=== PATIENT | female | born 1995 | race African-American/Black ===

== ENCOUNTER 2024-06-25 08:58 | Emergency (ER) | payer SELFPAY ==
--- NOTE | 2024-06-25 10:25 | ED.GENMED ---
History of Present Illness
General
Chief Complaint: Abdominal Symptoms
Source: patient
Exam Limitations: none
Time Seen by Provider: 06/25/24 09:31
Nursing documentation reviewed up to this point in time: agreed with
History of Present Illness
History of Present Illness:
28-year-old female with history of asthma presents stating she's had suprapubic pain for the past 3 to 4 days. She states she is from [place], up here visiting her boyfriend. She states recently in [place] she was 'tested for everything.' She
states this included gonorrhea, chlamydia and she was treated with an injection and pills for STD. She reports that all of her testing there was negative but she did not have a vaginal exam and they did not test her for chlamydia or HIV. She
states they told her she had an infection in her uterus.
She admits to having recent unprotected sex with someone other than her boyfriend.
She is here now because she has suprapubic pain which is worse with intercourse. She denies any vaginal pain or discharge. She states the suprapubic pain is pressure, aching, worse with moving.
She denies fever or chills. Denies SOB/CP. Denies N/V/D/C.
Past History
Past History
ED Past Medical History: Asthma
ED Past Surgical History: None
Social History
Tobacco: Non-smoker
Alcohol: Occasional
Drug: Marijuana (Occasional)
Personal: Single
Living: with roommate
Review of Systems
Review of Systems
Allergies reviewed?: Yes
All Other Systems: ROS reviewed and negative except as documented in HPI and ROS
Constitutional: Denies fever or chills
EENT: Denies sore throat or mouth pain
Respiratory: Denies trouble breathing
Cardiac: Denies chest pain
ABD/GI: Reports abdominal pain; Denies nausea, vomiting, diarrhea, constipated, bloody stools, black stools or anorexia
: Denies dysuria, frequency, difficulty voiding, urgency, bleeding or discharge
Musculoskeletal: Reports no symptoms
Skin: Reports no symptoms
Neurological: Reports no symptoms
Phy Exam
Physical Exam
Physical Exam:
GENERAL: No acute distress. A&Ox3.
CONSTITUTIONAL: Afebrile.
EYES: PERRL, conjunctivae normal
ENMT: moist mucus membranes, Pharynx nl, oral mucosa normal
RESPIRATORY: Regular respirations, nonlabored, lungs clear.
CARDIOVASCULAR: Regular rate and rhythm, no murmurs, no rubs.
GI: Soft, suprapubic tenderness, normal BS
MUSCULOSKELETAL: Moves with ease. Well perfused.
SKIN: Warm, dry, normal
PSYCH: Normal mood and affect. Well kept, interactive and appropriate
NEUROLOGIC: Awake, alert and oriented. No focal neurological deficits
Genitourinary Exam Female
Exam Female: vaginal discharge (There is a small to moderate amount of white discharge with whitish lesions on the cervix)
Vaginal Exam: normal
Vaginal Bleeding: none
Uterus: normal size
Adnexa: Bilateral: Normal
Course
Orders/Labs/Results
Orders:
Orders
06/25/24 10:25
Test Result ONCE
US Pelvis W Transvag Combined Urgent
Comment:
Reason For Exam: suprapubic pain
06/25/24 10:26
Urinalysis Urgent
Date Specimen was Collected: 06/25/24
Time Specimen was Collected: 10:24
06/25/24 10:32
Complete Blood Count/With Diff Urgent
Comprehensive Metabolic Panel Urgent
HCG, Serum Qualitative Screen Urgent
HIV Combo Urgent
06/25/24 10:45
Chlamydia/GC by PCR Urgent
BOBBI Source: Urine
Specimen Description:
Source:: URINE
Date Specimen was Collected: 06/25/24
Time Specimen was Collected: 10:41
Comment: Please also add urine trichamonas
Trichomonas - Wet Prep Urgent
BOBBI Source: Vagina
Specimen Description:
Date Specimen was Collected: 06/25/24
Time Specimen was Collected: 10:41
06/25/24 11:33
Makayla/Yeast Culture Urgent
BOBBI Source: Vagina
Specimen Description:
Date Specimen was Collected: 06/25/24
Time Specimen was Collected: 11:26
06/25/24 13:52
Fluconazole [Diflucan] 200 mg PO NOW STA
Abnormal Lab Results
06/25/24
10:32
RBC 3.97 L 10^6/uL
(4.20-5.40)
MCV 101.5 H fL
(81.0-99.0)
MCH 34.8 H pg
(27.0-31.0)
Plt Count 110 L 10^3/uL
(130-400)
MPV 12.5 H fL
(7.4-10.4)
Sodium 148 H mmol/L
(135-145)
AST 41 H U/L
(14-36)
Total Protein 8.7 H g/dl
(6.3-8.2)
Albumin 5.7 H g/dl
(3.5-5.0)
06/25/24 10:32
06/25/24 10:32
Vital Signs
Initial and Last Documented VS:
Initial Vital Signs
Pulse Resp BP Pulse Ox
86 20 131/75 100
06/25/24 13:48 06/25/24 13:48 06/25/24 13:48 06/25/24 13:48
Last Documented Vital Signs
Pulse Resp BP Pulse Ox
86 20 131/75 100
06/25/24 13:48 06/25/24 13:48 06/25/24 13:48 06/25/24 13:48
MDM/Problems Addressed
Differential Diagnosis Includes:
Candidiasis, STD
MDM/Problems Addressed:
28-year-old female with history of asthma presents stating she's had suprapubic pain for the past 3 to 4 days. She states she is from [place], up here visiting her boyfriend. She states recently in [place] she was 'tested for everything.' She
states this included gonorrhea, chlamydia and she was treated with an injection and pills for STD. She reports that all of her testing there was negative but she did not have a vaginal exam and they did not test her for chlamydia or HIV. She
states they told her she had an infection in her uterus.
She admits to having recent unprotected sex with someone other than her boyfriend.
She is here now because she has suprapubic pain which is worse with intercourse. She denies any vaginal pain or discharge. She states the suprapubic pain is pressure, aching, worse with moving.
She denies fever or chills. Denies SOB/CP. Denies N/V/D/C.
11:30 AM:
CBC with no clinically significant abnormality
CMP with no clinically significant abnormality
hCG negative
UA negative
Trichomoniasis wet prep negative for trichomonas
12:45 PM: Pelvic ultrasound radiology report read:IMPRESSION:
No focal uterine abnormality.
Demonstrable left ovarian blood flow. No findings to suggest left adnexal mass.
Right ovary not visualized.
Small volume free fluid in the right adnexa, left adnexa and cul-de-sac.
1:45 PM:
Patient has been out of bed ambulating multiple times into the hallway, joking, hyperactive at times, on the phone with her boyfriend putting him on speaker phone each time I am going to talk to her, asking for complete STD workup although she
stated she had a negative STD workup recently in [place].
GC/ chlamydia negative
Yeast culture will not be back until tomorrow. I will treat presumptively for yeast infection with 1 dose of Diflucan patient can call tomorrow for the yeast result. Otherwise her workup here is negative HIV test is pending and she will have to
call for the results
*Critical Care Note
Total Time (30-74mins, 75-104mins- exclusive of procedures): Not Applicable
ED Attending Note
-
Portions of this chart may have been created with voice recognition software.� Occasional wrong word or��sound alike� substitutions may have occurred due to the inherent limitations of voice recognition software.
Discharge Plan
Departure
Patient Disposition: Home (Routine Discharge)
Date of Disposition: 06/25/24
Time of Disposition: 13:46
Patient with high blood pressure during this ER visit?: No
Condition: Good
Discharge Problem:
Pelvic pain
Instructions: Abdominal Pain
Referrals:
NONE,* [Family Provider] -
Stand Alone Forms: Return to Work
Activity Restrictions/Additional Instructions:
As we discussed, your yeast test and HIV tests are pending and will not be done until tomorrow. You were treated here today for a presumed yeast infection with Diflucan 200 mg.
You should avoid sexual intercourse until your abdominal pain is gone and you have no symptoms such as vaginal discharge, vaginal irritation or itching.
You may call me Friday between 11 a.m. and 3 p.m. for the results of the Yeast and HIV tests or and ask for Day.
Interventions
Interventions:
*Risk Screen - Suicide Last Done: 06/25/24 09:08
*General Assessment Last Done: 06/25/24 10:26
*Neglect/Abuse Screening Last Done: 06/25/24 09:08
ED- Fall Risk Assessment Last Done: 06/25/24 14:04
*ED COVID-19 Vaccine History Last Done: 06/25/24 10:26
*Nursing Disposition Last Done: 06/25/24 14:04
UT-Jpeepz-Htojpadiag Assessment Last Done: 06/25/24 14:04
Discharge Date and Time
Discharge Date/Time: 06/25/24 14:15
Print Language: CAPE VERDEAN
[2024-06-25 10:36] VITALS: BMI 19.9
[2024-06-25 10:48] LABS: Urine Albumin Negative (Neg - Trace); Urine Bilirubin Negative (Negative); Urine Character Clear (Clear); Urine Color Yellow; Urine Glucose Negative (Negative); Urine Ketone Negative (Negative); Urine Leukocyte Negative (Negative); Urine Nitrite Negative (Negative); Urine Occult Blood Negative (Negative); Urine Specific Gravity 1.015 (<1.030); Urine Urobilinogen Negative (Neg - 1+); Urine pH 6.5 (5.0-9.0)
[2024-06-25 10:57] LABS: Hematocrit 40.3 % (37.0-47.0); Hemoglobin 13.8 g/dL (12.0-16.0); Mean Corp Hgb Conc. 34.2 g/dL (33.0-37.0); Mean Corpuscular Hgb 34.8 pg (27.0-31.0); Mean Corpuscular Volume 101.5 fL (81.0-99.0); Mean Platelet Volume 12.5 fL (7.4-10.4); Platelet Count 110 10^3/uL (130-400); Red Blood Cell Count 3.97 10^6/uL (4.20-5.40); Red Cell Dist. Width 12.5 % (11.5-14.5); White Blood Cell Count 6.1 10^3/uL (4.8-10.8)
[2024-06-25 11:08] LABS: ALT (SGPT) 34 U/L (0-35); AST (SGOT) 41 U/L (14-36); Albumin 5.7 g/dl (3.5-5.0); Alkaline Phosphatase 46 U/L (38-126); Blood Urea Nitrogen 11 mg/dl (7-17); Calcium 9.7 mg/dl (8.4-10.2); Carbon Dioxide 26 mmol/L (22-30); Chloride 107 mmol/L (98-107); Estimated Creatinine Clearance 105 ml/min; Glucose 94 mg/dl (70-99); Potassium 3.9 mmol/L (3.5-5.1); Sodium 148 mmol/L (135-145); Total Bilirubin 0.3 mg/dl (0.2-1.3); Total Protein 8.7 g/dl (6.3-8.2); eGFR > 60.00
[2024-06-25 11:12] LABS: HCG, Serum Qualitative Screen Negative
[2024-06-25 11:54] LABS: % Basophils 0.7 % (0-2); % Eosinophils 0.7 % (0-6); % Lymphocytes 28.9 % (20.5-51.1); % Monocytes 9.2 % (1.7-9.3); % Neutrophils 60.5 % (42.2-75.2); Absolute Lymphocytes 1.8 10^3/uL (1.2-3.4); Absolute Monocytes 0.6 10^3/uL (0.1-0.6); Absolute Neutrophils 3.7 10^3/uL (1.4-6.5); Nucleated Red Blood Cells % 0 %
[2024-06-25 13:25] LABS: HIV Combo Negative (Negative)
[2024-06-25 13:48] VITALS: BP 131/75
[2024-06-25] MEDS: DIFLUCAN 200 MG PO (13:57)
== END 2024-06-25 14:15 | disposition home or self-care (01) ==
LOC: EMR 08:58
PROVIDERS: Registered Nurse; EMERGENCY PHYSICIAN Emergency Medicine
DX: R10.2 Pelvic and perineal pain (principal); J45.909 Unspecified asthma, uncomplicated
CPT/HCPCS: 99284; 76830; 76856; 80053; 81003; 84703; 85025; 87102; 87210; 87389; 87491; 87591

== ENCOUNTER 2025-01-19 03:07 | Inpatient (IN) | payer BC, SELFPAY ==
[2025-01-18 18:48] VITALS: BP 140/107
[2025-01-18 19:08] LABS: Hematocrit 38.6 % (37.0-47.0); Hemoglobin 13.9 g/dL (12.0-16.0); Mean Corp Hgb Conc. 36.0 g/dL (33.0-37.0); Mean Corpuscular Volume 92.8 fL (81.0-99.0); Red Cell Dist. Width 12.3 % (11.5-14.5)
[2025-01-18 19:10] LABS: HCG, Serum Qualitative Screen Negative
[2025-01-18 19:19] LABS: ALT (SGPT) 24 U/L (0-35); AST (SGOT) 31 U/L (14-36); Albumin 5.5 g/dl (3.5-5.0); Alkaline Phosphatase 55 U/L (38-126); Blood Urea Nitrogen 10 mg/dl (7-17); Calcium 10.3 mg/dl (8.4-10.2); Carbon Dioxide 23 mmol/L (22-30); Chloride 110 mmol/L (98-107); Glucose 110 mg/dl (70-99); Lipase 399 U/L (23-300); Potassium 4.0 mmol/L (3.5-5.1); Sodium 141 mmol/L (135-145); Total Protein 9.0 g/dl (6.3-8.2); eGFR > 60.00
[2025-01-18 19:24] LABS: Platelet Count 154 10^3/uL (130-400)
[2025-01-18 19:25] LABS: Nucleated Red Blood Cells % 0 %
[2025-01-18] MEDS: TYLENOL 650 MG PO (21:20)
--- NOTE | 2025-01-18 22:47 | ED.GENMED ---
History of Present Illness
General
Chief Complaint: Abdominal Pain
Source: patient
Exam Limitations: none
Time Seen by Provider: 01/18/25 22:11
Nursing documentation reviewed up to this point in time: agreed with
History of Present Illness
History of Present Illness:
Note:
CHIEF COMPLAINT(S)
Abdominal pain.
HISTORY OF PRESENT ILLNESS
The patient is a 29-year-old female who presents with abdominal pain that began on Friday. She describes the pain as feeling like her organs are twisting or pulling. Since the onset, the pain has been constant, and she reports being unable to
sleep or perform daily activities. She initially experienced diarrhea, which has since resolved to the sensation of needing to defecate, but only passing a small amount. Urination is normal. Her last menstrual period was on the , and there is no
abnormal vaginal bleeding or discharge reported. She denies the possibility of . The patient reports experiencing fluctuations in body temperature, but no definitive fevers. She feels nauseated but has not vomited. She last took ibuprofen
for pain at 9:00 AM, which was ineffective. The patient denies any recent use of narcotics or opioids.
SOCIAL HISTORY
The patient mentions taking a sleep aid regularly.
MEDICATIONS
The patient reports taking a sleep aid on a daily basis and recently took ibuprofen for her current symptoms.
REVIEW OF SYSTEMS
- Gastrointestinal: Initially had diarrhea, now has a sensation of incomplete evacuation.
- Genitourinary: Normal urination, last menstrual period on the , no unusual vaginal symptoms.
- General: Reports fluctuations between feeling hot and cold.
PLAN
The plan includes administering pain medication and performing a computed tomography (CT) scan of the abdomen to further investigate the cause of her symptoms.
DIFFERENTIAL DIAGNOSIS
The Differential Diagnosis includes, in no particular order and is not limited to:
1. Pancreatitis
2. Constipation or bowel obstruction
3. Peptic ulcer disease
4. Urinary tract infection
5. Crohns disease
6. Irritable bowel syndrome
7. Ectopic
8. Appendicitis
9. Ovarian cyst or torsion
10. Pelvic inflammatory disease
CARE-UPDATE
01/19/25 - 00:39
The patient was discharged from alcohol rehab on December 01, remaining sober for approximately six weeks. The current condition, mild to moderate acute on chronic pancreatitis, is suspected to be linked to recent heavy alcohol use. Treatment plan
includes administering fluids and additional pain medication as needed. The patient consented to stay for further care.
Disposition:
SUMMARY OF ENCOUNTER
The patient is a 29-year-old female who presented to the emergency department with abdominal pain. She has a history of alcoholism and recently completed alcohol rehab approximately six weeks ago. Over the past weekend, she resumed heavy drinking
and subsequently developed abdominal pain localized to the epigastric region. Her symptoms and clinical presentation are consistent with acute pancreatitis.
DISPOSITION
Admit.
ASSESSMENT
The patient presents with symptoms indicative of acute pancreatitis, likely precipitated by recent heavy alcohol consumption following a period of abstinence.
PLAN
The plan includes admitting the patient for further evaluation and management of acute pancreatitis. Treatment will include supportive care, pain management, and monitoring for potential complications related to pancreatitis.
MEDICAL DECISION MAKING
-Complexity of Data Reviewed: Chronic conditions affecting care include a history of alcoholism and recent heavy alcohol use.
-Data:
Category 1
Tests considered: CT scan of the abdomen to further evaluate abdominal pain.
-Risk:
Consideration of Admission/Observation: Escalation of care including admission was considered and chosen due to the complexity and risk associated with acute pancreatitis and the patients alcohol use history.
DIAGNOSIS
Acute pancreatitis (ICD-10: K85.90).
Past History
Past History
ED Past Medical History: Asthma
ED Past Surgical History: None
Social History
Tobacco: Non-smoker
Alcohol: Occasional
Drug: Marijuana (Occasional)
Personal: Single
Living: with roommate
Review of Systems
Review of Systems
Allergies reviewed?: Yes
All Other Systems: ROS reviewed and negative except as documented in HPI and ROS
Constitutional: Reports no symptoms
EENT: Reports no symptoms
Respiratory: Reports no symptoms
Cardiac: Reports no symptoms
ABD/GI: Reports abdominal pain and nausea
: Reports no symptoms
Musculoskeletal: Reports no symptoms
Skin: Reports no symptoms
Neurological: Reports no symptoms
Endocrine: Reports no symptoms
Hematologic/Lymphatic: Reports no symptoms
Psychiatric: Reports no symptoms
Phy Exam
General Physical Exam
General Presentation: moderate distress
General age: appears stated age
General Skin: warm, dry and other (tattoos )
General Habitus: normal
General Mental: alert
General Hydration: appears well hydrated
ENT Exam
ENT Exam: EOMI, pharynx normal, neck supple and normocephalic
Eye Exam
Eye Exam: PERRL, cornea clear and conjunctiva normal
Cardiovascular Exam
Cardiovascular Exam: regular rate/rhythm, no edema, no murmur and normal peripheral pulses
Pulmonary Exam
Pulmonary Exam: lungs clear, no respiratory distress, no rales, no crackles, no rhonchi, no stridor, no wheezing and no cough
Gastrointestinal Exam
Gastrointestinal Exam: normal bowel sounds and guarding
Palpation: left upper quadrant: Moderate tenderness, right upper quadrant: Moderate tenderness and generalized: Moderate tenderness
Auscultation of Abdomen: normal
Neurological Exam
Neurological Exam: alert, oriented x3, no motor deficits and speech normal
Musculoskeletal Exam
Musculoskeletal Exam: full ROM and no edema
Skin Exam
Skin Exam: normal color, warm/dry, no rash and no petechia
Psychiatric Exam
Psychiatric Exam: normal mood/affect
Course
Orders/Labs/Results
Orders:
Orders
01/18/25 18:50
IV Insert/Care/Rem.- Treatment PRN
Test Result ONCE
01/18/25 18:53
Complete Blood Count/With Diff Urgent
Comprehensive Metabolic Panel Urgent
HCG, Serum Qualitative Screen Urgent
Comment: Notify provider if positive test present
Lactate Level [Lactic Acid] Urgent
Lipase Urgent
01/18/25 21:18
Acetaminophen [Tylenol] 650 mg .ROUTE .STK-MED ONE
01/18/25 21:19
Acetaminophen [Tylenol] 650 mg PO NOW STA
01/18/25 22:45
Morphine Sulfate 4 mg IV NOW STA
Ondansetron Injectable [Zofran] 4 mg IV NOW STA
01/18/25 22:46
CT Abd/pelvis W Iv Cont Urgent
Comment:
Reason For Exam: diffuse abd pain
0.9% Sodium Chloride 1000 ml [Nss] 1,000 ml IV BOLUS
01/19/25 00:45
Morphine Sulfate 4 mg IV NOW STA
Abnormal Lab Results
01/18/25
18:53
RBC 4.16 L 10^6/uL
(4.20-5.40)
MCH 33.4 H pg
(27.0-31.0)
MPV 12.2 H fL
(7.4-10.4)
Monocytes % 9.5 H %
(1.7-9.3)
Chloride 110 H mmol/L
(98-107)
Glucose 110 H mg/dl
(70-99)
Calcium 10.3 H mg/dl
(8.4-10.2)
Total Protein 9.0 H g/dl
(6.3-8.2)
Albumin 5.5 H g/dl
(3.5-5.0)
Lipase 399 H U/L
(23-300)
01/18/25 18:53
01/18/25 18:53
Vital Signs
Initial and Last Documented VS:
Initial Vital Signs
Temp Pulse Resp BP Pulse Ox
98.6 F 112 18 140/107 100
01/18/25 18:48 01/18/25 18:48 01/18/25 18:48 01/18/25 18:48 01/18/25 18:48
Last Documented Vital Signs
Temp Pulse Resp BP Pulse Ox
98.6 F 84 18 115/75 100
01/18/25 18:48 01/18/25 22:02 01/18/25 22:02 01/19/25 00:02 01/19/25 00:02
*Radiology
Radiology exam reviewed: radiology read reviewed
*Pulse Oximetry
SaO2: 99
Oxygen Mode of Delivery: Room air
Patient hypoxic: no
*Critical Care Note
Total Time (30-74mins, 75-104mins- exclusive of procedures): Not Applicable
Update Note
Update Note:
NAME: JOSE CERON
DATE OF EXAM: 01/18/2025
Patient No: [id number]
Physician: REEMA^YVONNE^Simon
Date of : 1995
Past Medical History (entered by Technologist):
Reason For Exam (entered by Technologist): diffuse abd pain
Other Notes (entered by Technologist): no prior ct
Additional Information (per [facility] Radiologist): Per Dr. Dean, lipase elevated to 400s
CT A/P
IMPRESSION:
Soft tissue density and edema seen within the pancreaticoduodenal groove, with an associated small probable reactive lymph node. 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 MRI/MRCP
is recommended for further assessment.
Layering biliary sludge in the gallbladder.
Noninflamed appendix. No evidence of bowel obstruction.
No evidence of obstructing ureteral calculus.
Additional findings: Focal fat adjacent to the falciform ligament.
Case discussed with Dr. Dean at 12:26AM ET.
Philipp Obrien M.D.
This report has been electronically signed and verified by the Radiologist whose name is printed above.
ED Attending Note
-
Portions of this chart may have been created with voice recognition software.� Occasional wrong word or��sound alike� substitutions may have occurred due to the inherent limitations of voice recognition software.
Discharge Plan
Departure
Patient Disposition: Admit
Date of Disposition: 01/19/25
Time of Disposition: 00:42
Admit to: Med/Surg
Presentation/result/management discussed w/ accepting MD/DO: Hospitalist
Discharge Problem:
Pancreatitis
Referrals:
NONE,* [Family Provider, Internal Medicine]
Interventions
Interventions:
*Risk Screen - Suicide Last Done: 01/18/25 18:48
*General Assessment Last Done: 01/18/25 21:54
*Neglect/Abuse Screening Last Done: 01/18/25 18:48
*ED- Fall Risk Assessment Last Done: 01/18/25 21:54
*ED COVID-19 Vaccine History Last Done: 01/18/25 21:54
YG-Mkdnit-Owbghxuwyo Assessment Last Done: 01/18/25 21:54
Discharge Date and Time
Print Language: HUNGARIAN
[2025-01-18 23:00] VITALS: BP 116/81
[2025-01-18] MEDS: ZOFRAN 4 MG IV (23:03)
[2025-01-18] MEDS: NSS 1000 IV (23:03)
[2025-01-18] MEDS: MORPHINE SULFATE 4 MG IV (23:05)
[2025-01-19] VITALS (9 sets, daily range): BP systolic 100–130; BP diastolic 69–84; BMI 23.5
[2025-01-19] MEDS: MORPHINE SULFATE 4 MG IV (01:05)
--- NOTE | 2025-01-19 01:16 | HPS.HSE ---
Family Physician
-
Family Physician: * NONE
Chief Complaint
-
abdominal pain
History of Present Illness
29yo F with PMHx of alcoholic dependency, recently from rehab had relapsed with alcohol intake and developed epigastric abd pain radiating to the back over weekend, she was trying to calm pain down with alcohol. CT showed acute on chronic
pancreatitis
Medical History
Past Medical History
Past Medical History: Reports Other
Additional Past Medical History:
see HPI
Past Surgical History: Reports None
Social History
Tobacco: Smoker
Alcohol: Daily
Drug: None
Family History
Family History: Not pertinent
Allergies / Home Medications
Allergies reflects when Allergies were last updated in [facility].
Home Medications with original date entered in [facility]
Allergy/Medication List:
Allergies
Allergy/AdvReac Type Severity Reaction Status Date / Time
guaifenesin (From Robitussin) Allergy Hives Verified 01/18/25 18:48
Not on any meds
Review of Systems
-
A 12 point ROS was completed and negative except as noted: Yes
Abdomen/GI: Reports See HPI
Physical Exam
Vital Signs
Vital Signs
Temp Pulse Resp BP Pulse Ox
98.6 F 84 18 123/84 98
01/18/25 18:48 01/18/25 22:02 01/18/25 22:02 01/19/25 01:00 01/19/25 01:00
Physical Exam
General: Well Developed, Well Nourished and No Apparent Distress
HEENT: NormoCephalic, Anicteric and Moist mucous membranes
Respiratory: Clear; No Wheezes or Crackles
Cardiac: S1/S2 and Regular Rhythm; No Murmur
GI: Soft, Non Distended and Tender
Genito-urinary: No costovertebral tender
Musculoskeletal: No Clubbing, No Cyanosis and No Edema
Skin: Warm
Neuro: Awake, Alert, Oriented and AO x 3
Psych: Calm
Laboratory Results
-
01/18/25 18:53
01/18/25 18:53
Laboratory Results
Lactic Acid 1.3 mmol/L (0.7-2.0) 01/18/25 18:53
Total Bilirubin 0.4 mg/dl (0.2-1.3) 01/18/25 18:53
AST 31 U/L (14-36) 01/18/25 18:53
ALT 24 U/L (0-35) 01/18/25:53
Alkaline Phosphatase 55 U/L (38-126) 01/18/25 18:53
Lipase 399 U/L (23-300) H 01/18/25 18:53
Data Reviewed
-
Diagnostic Radiology: Report Reviewed by me
Lab Data: Labs Reviewed by me
Impression/Plan
-
A/P:
#Acute alcoholic pancreatitis
CT with just some sludge in gall bladder
mild elevation of calcium 2/2 dehydration
Bolus 2L in ED, then IVF LR 200ml/h
NPO
Pain mgmt
MRCP as recommeded by radiologist
GI consult
#Alcohol abuse
MSAS with Ativan and thiamine/folate
watch for withdrawal as patient consumed up to 1 pint of hard liquor daily
DVT ppx lovenox
Full code
I have spent at least 78min admitting the patient
[2025-01-19] MEDS: NSS 1000 IV (01:23)
[2025-01-19 01:30] LABS: HDL Cholesterol 67 mg/dl; LDL Cholesterol, Calculated 81 mg/dl; Very Low Density Lipoprotein 22 mg/dl (0-30)
[2025-01-19] MEDS: MORPHINE SULFATE 2 MG IV ×5 (03:57→20:37)
[2025-01-19] MEDS: TORADOL 10 MG IV ×3 (03:57→19:44)
[2025-01-19] MEDS: ATIVAN 1 MG PO ×2 (03:57→19:44)
[2025-01-19] MEDS: LR 1000 IV ×4 (03:58→19:45)
--- NOTE | 2025-01-19 06:59 | CON.GI ---
Addendum entered and electronically signed by Kizzy Kong DO 01/19/25 12:00:
The patient was seen and examined by me independently in collaboration with the nurse practitioner.
Past medical history/social history/medications/allergies/family history reviewed.
Lab data and imaging data reviewed.
29 y.o. female with etoh abuse and daily marijuana use admitted with epigastric pain found to have acute pancreatitis, WBC 10K and Lipase 399.
CT A/P: 6.5 mm hypodensity along the lateral right hepatic lobe, too small to accurately characterize although may represent a small cyst or hemangioma. Bile ducts normal. 'possible layering biliary sludge.' Mild stranding along the pancreatic head.
The nighthawk read mentioned changes of acute on chronic pancreatitis, however, not seen in final read from our radiologist. She denies prior episodes of chronic pancreatitis. No EPI symptoms.
She was in rehab in November, but admits to ongoing etoh use, 1 pint of rum daily.
Currently, pain is somewhat improved, 01/20.
A/P: Acute pancreatitis, 1st episode
-questionable chronic panc on nighthawrk read, only reading as acute pancreatitis on official/final read
-suspect etoh pancreatits but given GB sludge on US, recommend MRI/MRCP to further evaluate, LFTs WNL
-IVF @ 200 cc/hr
-check CRP
-okay for ice chips/sips of water, can advance to clears once pain improves
-trig WNL
Addendum entered and electronically signed by AREN Mane 01/19/25 08:25:
to note no prior hx pancreatits in past-- this is first episode
Original Note:
Consultation
-
Date/Time Consultation Requested: 01/19/25 0050
Date/Time Consultation Performed: 01/19/25 0700
Requesting Provider: Pepe Forde MD
Performing Provider: AREN Estevez, Andria Kong DO
Reason for Consultation: abdominal pain, increased lipase
Medical History
Chief Complaint / HPI
Chief Complaint: abdominal pain
History of Present Illness:
Pt is a 29yo presents with history ETOH dependency, daily marijuana use, asthma, headaches with recent rehab with onset of epigastric pain with ETOH use and noted on admission with WBC 10,300 and lipase of 399. CT completed in ER with alyshak
reading with concern for pancreatitis acute on chronic recommended MRI, laying of sludge, and final read with pancreatitis, laying sludge liver cyst vs hemangioma. ETOH level of 72 on admission.
In review with patient she admits to hx ETOH use. She went to rehab in November but admits to continued ETOH use 1 pint of rum daily after rehab completed. She admits to mild pain that became severe and prompting admission. Pain was 10+/10 then
7/10 on evaluation. She admits to regular NSAID use for pain and headaches. She has also had diarrhea and constipation issues. She denies odynophagia, dysphagia, GERD or rectal bleeding. No hx EGD or colonoscopy in past. Only new med sleeping
med. She is on other medication but no meds listed in chart.
Past Medical History
Past Medical History: Asthma and Other (ETOH, Marijuana use, headaches )
Past Surgical History: Other (nasal surgery )
Social History
Tobacco: Smoker
Alcohol: Daily
Drug: Marijuana and Other (no other IVDA)
Personal: Other (boyfriend )
Living: Other (lives in [place] currently visiting boyfriend )
Employment: Employed
Family History
Family History: Other (both parents with hx alcohol use )
Allergies / Home Medications
Allergy/AdvReac Type Severity Reaction Status Date / Time
guaifenesin (From Robitussin) Allergy Hives Verified 01/18/25 18:48
Review of Systems
-
History Source: Patient
Constitutional: Reports Weight Gain
EENT: Reports No Symptoms
Respiratory: Reports No Symptoms
Cardiac: Reports No Symptoms
Abdomen/GI: Reports Abdominal Pain
: Reports No Symptoms
Musculoskeletal: Reports No Symptoms
Skin: Reports No Symptoms
Neurological: Reports Headache
Endocrine: Reports No Symptoms
Hematologic/Lymphatic: Reports No Symptoms
Vital Signs
Temp Pulse Resp BP Pulse Ox
97.3 F 82 16 130/84 95
01/19/25 03:50 01/19/25 03:50 01/19/25 03:50 01/19/25 03:50 01/19/25 03:50
Physical Exam
Exam
General: Well Developed, Well Nourished and No Apparent Distress
HEENT: Normocephalic and Anicteric
Respiratory: Clear
Cardiac: Regular Rhythm
GI: Soft, Tender (diffuse ) and Distended
Musculoskeletal: No Clubbing and No Cyanosis
Skin: Warm and Dry
Neuro: Awake, Alert and AO x 3
Psych: Calm
Results
WBC 6.7 10^3/uL (4.8-10.8) 01/18/25 18:53
Hgb 13.9 g/dL (12.0-16.0) 01/18/25 18:53
Hct 38.6 % (37.0-47.0) 01/18/25 18:53
MCV 92.8 fL (81.0-99.0) 01/18/25 18:53
Plt Count 154 10^3/uL (130-400) 01/18/25 18:53
Absolute Neuts (auto) 3.6 10^3/uL (1.4-6.5) 01/18/25 18:53
Sodium 141 mmol/L (135-145) 01/18/25 18:53
Potassium 4.0 mmol/L (3.5-5.1) 01/18/25 18:53
Chloride 110 mmol/L (98-107) H 01/18/25 18:53
Carbon Dioxide 23 mmol/L (22-30) 01/18/25 18:53
BUN 10 mg/dl (7-17) 01/18/25 18:53
Creatinine 0.6 mg/dL (0.6-1.0) 01/18/25 18:53
Calcium 10.3 mg/dl (8.4-10.2) H 01/18/25 18:53
Total Bilirubin 0.4 mg/dl (0.2-1.3) 01/18/25 18:53
AST 31 U/L (14-36) 01/18/25 18:53
ALT 24 U/L (0-35) 01/18/25 18:53
Alkaline Phosphatase 55 U/L (38-126) 01/18/25 18:53
Lipase 399 U/L (23-300) H 01/18/25 18:53
Diagnostic Image Results:
01/19 CT A/p nighthawk- soft tissue density and edema within pancreatic duodenal groove with reactive lymph node. acute superimposed on chronic pancreatitis. MRI recommended. layering of sludge in gallbladder. non inflammed appendix no obstruction
no obs renal calculi, focal fat adjacent to falciform ligament-
final CT reading
There is mild stranding along the pancreatic head suggestive of pancreatitis.
There is possible layering biliary sludge.
There is a 6.5 mm mild hypodensity along the lateral right hepatic lobe, too small to accurately characterize although may represent a small cyst or hemangioma.
Prior GI Procedures:
EGD: none
Colonoscopy: none
Assessment / Plan
-
Pt is a 29yo presents with history ETOH dependency, daily marijuana use, asthma, headaches with recent rehab with onset of epigastric pain with ETOH use and noted on admission with WBC 10,300 and lipase of 399. CT completed in ER with nighthawk
reading with concern for pancreatitis acute on chronic recommended MRI, laying of sludge, and final read with pancreatitis, laying sludge liver cyst vs hemangioma. ETOH level of 72 on admission.
-pancreatitis possible acute on chronic per night hawk read
-abdominal distention - possible ileus
-ETOH abuse
-sludge on imaging
-possible hemangioma
-elevated calcium on admission
-daily Marijuana use
-asthma
-NSAID use
PLAN:
Etiology of symptoms with concern for ETOH pancreatitis possible acute on chronic, some sludge on CT, TG normal
cont IVF 200ml/hr
pain control
add CRP for baseline
Ice chips/sips fluids monitor for worsening distention with possible ileus
stressed ETOH abstinence
for MRCP will add contrast to study
will follow
-
-
Thank you for consultation and allowing me to participate in the patient's care. Please call the coordinator of online programs GI physician during the after hours with any questions or concerns.
[2025-01-19] MEDS: FOLVITE 1 MG PO (07:32)
[2025-01-19] MEDS: FLUSH (NSS) 1 FLUSH IV ×5 (07:33→16:29)
[2025-01-19] MEDS: THIAMINE INJECTION 200 MG IV ×2 (07:33→19:44)
[2025-01-19 08:45] LABS: Hematocrit 32.9 % (37.0-47.0); Hemoglobin 11.2 g/dL (12.0-16.0); Mean Corp Hgb Conc. 34.0 g/dL (33.0-37.0); Mean Corpuscular Volume 96.5 fL (81.0-99.0); Nucleated Red Blood Cells % 0 %; Red Cell Dist. Width 12.2 % (11.5-14.5)
[2025-01-19 09:08] LABS: Blood Urea Nitrogen 8 mg/dl (7-17); Calcium 8.4 mg/dl (8.4-10.2); Carbon Dioxide 23 mmol/L (22-30); Chloride 110 mmol/L (98-107); Estimated Creatinine Clearance 123 ml/min; Glucose 87 mg/dl (70-99); Potassium 3.7 mmol/L (3.5-5.1); Sodium 136 mmol/L (135-145); eGFR > 60.00
[2025-01-19 09:23] LABS: Platelet Count 128 10^3/uL (130-400)
[2025-01-19 09:41] LABS: ALT (SGPT) 18 U/L (0-35); AST (SGOT) 26 U/L (14-36); Albumin 3.8 g/dl (3.5-5.0); Alkaline Phosphatase 34 U/L (38-126); Total Protein 6.0 g/dl (6.3-8.2)
--- NOTE | 2025-01-19 12:22 | CM ---
Met with patient to obtain information for assessment. Patient stated that she lives in [place] with a roommate. She reported that they do get along well. She has no steps to enter or steps inside building. She described herself as independent with
her ADLs, personal care, dressing and bathing. She can cook, clean, do communication and outreach manager and laundry. She is able to drive however does not currently have her license or a car and therefore she is transported by friends. She works for patient access
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 Patient has no DME. She has not had VN services in the past. She has no DME.
Patient has been to rehab, Inpatient, IOP and has gone consistently to AA meetings in her area. She stated that she relapsed over the weekend and started to develop severe abdominal pain.
Patient does not have a lot of family support. She has 5 siblings and a mother but is only close with one sister.
[facility] has a [facility] [place] [facility].
Patient does not have a PCP listed.
Patient stated that she would like to return to work when she can. She would like to start IOP at [facility] [phone]. She has been there before.
Placed a call to [facility] and spoke with Ally who stated that she will come to see patient later today and assist with connecting her to rehab services. CM contact information was provided.
Plan: Case management with continue to follow and assist with discharge planning. Rehab when stable.
[2025-01-19 13:57] LABS: C-Reactive Protein < 5.00 mg/L (0.0-10.00)
--- NOTE | 2025-01-19 15:38 | W.PN.UPDATE ---
Update Note
Progress Note Update
Nonbillable note
1. Acute pancreatitis -presumed alcohol use related. CT abdomen pelvis and MRI MRCP did not show any biliary issues. Lipase not significantly elevated although patient does have abdominal pain. Maintain n.p.o. and on IV fluid. GI following and
help appreciated
2. Depression/anxiety -resume back on Seroquel. Hold nighttime trazodone as with added need of narcotics may cause sedation.
--- NOTE | 2025-01-19 16:08 | PTCARENOTE ---
Pt AAO x3, CASTANON well, ambulatory to BR; kale well. VSS. On room air- pulseox 100%, no SOB noted. Abd soft, sl rounded, BS generally decreased. remains NPO; kale ice chips. Pt c/o upper abd discomfort; given prn Morphine with moderate effect; pt
noted to be sleeping at times after receiving pain med. Voiding in BR without difficulty. IVF's RL @ 200 ml/hr infusing via Rt AC site without sx of infiltration. Resting in bed at present. Will continue to monitor.
--- NOTE | 2025-01-19 16:37 | W.PN.UPDATE ---
Update Note
Progress Note Update
s/p MRI/MRI today: mild edema surrounding the pancreatic head and the third and fourth segments of the duodenum. Mild pancreatic head parenchymal edema. Normal pancreatic parenchymal enhancement following intravenous contrast. Findings consistent
with mild interstitial pancreatitis. No peripancreatic fluid collection. No main pancreatic duct dilatation. Common bile duct measures top normal, 6 mm. No persistent or reproducible low signal intensity intraluminal filling defect is identified to
suggest choledocholithiasis. The gallbladder is normally distended without MR evidence of cholelithiasis. No pericholecystic edema or gallbladder wall thickening.
Plan:
-trial of clear liquids, advance diet as tolerated
-analgesia, antiemetics prn
-alcohol cessation
GI will sign off, please call with questions
[2025-01-19] MEDS: SEROQUEL 100 MG PO (21:48)
[2025-01-20] MEDS: LR 1000 IV ×3 (00:09→10:11)
[2025-01-20] MEDS: MORPHINE SULFATE 2 MG IV (05:28)
[2025-01-20 07:43] VITALS: BP 121/82
[2025-01-20] MEDS: FOLVITE 1 MG PO (09:25)
[2025-01-20] MEDS: THIAMINE INJECTION 200 MG IV (09:25)
[2025-01-20] MEDS: SENOKOT-S 1 TABLET PO (09:32)
--- NOTE | 2025-01-20 10:05 | CM ---
Spoke with Estefany from [facility] who stated that patient is not interested in inpatient rehab as she has to work. She would like to go back to [place] and pursue an IOP a few times as week. [facility] worker provided local resources. Patient was agreeable.
Plan: Case management will continue to follow and assist with discharge planning. Home with f/u outpatient at [facility] facility and continuation of AA meetings.
[2025-01-20] MEDS: TORADOL 10 MG IV (10:14)
--- NOTE | 2025-01-20 12:12 | W.PN.HOSP.TC ---
Today's Communication/Plan
-
d/c home
Assessment / Plan
Assessment / Plan
1. Acute pancreatitis -presumed alcohol use related. CT abdomen pelvis and MRI MRCP did not show any biliary issues. Lipase not significantly elevated. Some abd discomfort today, able to tolerate LF diet.
2. Depression/anxiety -resume back on Seroquel. Hold nighttime trazodone as with added need of narcotics may cause sedation.
More than 30 minutes spent in discharge including
Final examination of the patient
Summarizing hospital stay
Instructions for continuing care to all relevant caregivers
Preparation of discharge records, prescriptions, and referral forms
Total time spent (in minutes): 39 mins
Anticipated Discharge: Today
Subjective/Interval History
-
Date of Service: January 20, 2025
Some abdominal discomfort
No overt nausea or vomiting
Denies of any other issues
Objective Data
-
Vital Signs:
Vital Signs
Temp Pulse Resp BP Pulse Ox
98.1 F 76 12 121/82 100
01/20/25 07:43 01/20/25 07:43 01/20/25 07:43 01/20/25 07:43 01/20/25 07:43
I&O
01/19/25 01/20/25 01/21/25
06:59 06:59 06:59
Intake Total 500 / 500 6080 / 6080
Balance 500 / 500 6080 / 6080
Review of Systems
-
Respiratory: Reports No Symptoms
Cardiac: Reports No Symptoms
Abdomen/GI: Reports No Symptoms
Physical Exam
-
General: No Apparent Distress and Comfortable
HEENT: Negative Oxygen
Musculoskeletal: No Edema
Neuro: Awake, Alert, Oriented, No Motor Deficits and Nonfocal/Grossly Intact
Psych: Calm
[2025-01-20] MEDS: SEROQUEL 50 MG PO (14:16)
[2025-01-20 15:35] VITALS: BP 132/105
[2025-01-20 15:39] VITALS: BP 143/91
--- NOTE | 2025-01-20 16:57 | W.PN.UPDATE ---
Update Note
Progress Note Update
Fzcis-qusbo-ypyby for work note as specified by attending physician and set up in the d/c module.
--- NOTE | 2025-01-21 08:33 | W.DCSUMMARY ---
Discharge Summary
Discharge Data
Date of Admission: 01/19/25
Date of Discharge: 01/20/25
-
Pending Results: No
Hospital Course
Discharging Physician : Dr Zurdo Gary
Disposition : To home
Primary care physician : Unknown
Principal Discharge diagnosis :
Acute pancreatitis from alcohol use
Chronic Discharge diagnosis :
Depression/anxiety
Hospital Course :
Patient is a 29-year-old female with above-mentioned past medical history was sent to ER for having new onset of epigastric abdominal pain with radiation to back with some nausea. Patient has history of alcohol use and was trying to use alcohol to
help with the pain. CT abdomen pelvis in ER showed mild pancreatitis. Lipase were not significantly elevated although in light of conjunction with typical abdominal pain and imaging finding patient was diagnosed for acute pancreatitis. GI was
involved in care and patient had a follow-up MRI MRCP which confirmed pancreatic inflammation and ruled out any other liver/biliary issues. Patient was maintained n.p.o. and IV hydration. Patient had improvement in symptoms within 48 hours.
Patient was discharged home with guidance on alcohol cessation.
Important imaging findings :
None
Procedure findings :
None
Discharge Plan
-
Patient Disposition: Home (Routine Discharge)
Discharge Diagnosis/Procedures: Acute pancreatitis
Condition: Fair
Diet: Low Fat
Activity: As tolerated
Driving Restrictions: As prior to admission
Bathing Restrictions: OK to Shower
Stand Alone Forms: Return to Work
Referrals:
NONE,* [Family Provider, Internal Medicine]
Prescriptions:
Continued
quetiapine 50 mg Tablet
50 mg PO DAILY
Patient Comments:
per pt last dose approx 2 weeks ago
Rx Instructions:
take at 3:00 pm
Colace
100 mg PO BID
Patient Comments:
per pt last dose approx 1 1/2 weeks ago
magnesium oxide
500 mg PO DAILY
Patient Comments:
per pt last dose approx 1 week ago
quetiapine
100 mg PO HS
Patient Comments:
per pt last dose approx 1 week ago
trazodone
100 mg PO HS PRN (Reason: sleep)
Patient Comments:
per pt last dose approx 1 week ago
vitamin E
450 mg PO DAILY
Patient Comments:
per pt last dose approx 1 week ago
Discharge Orders:
Discharge Patient (As Directed); Ordered 01/20/25
Ordered By: Lacey Villanueva
Discharge Date and Time
Discharge Date/Time: 01/20/25 18:12
Print Language: ESTONIAN
== END 2025-01-20 18:12 | disposition home or self-care (01) | DRG 440 ==
LOC: 4 EAST ACU 03:07
PROVIDERS: Emergency Medicine; ADMITTING PHYSICIAN Internal Medicine; ATTENDING PHYSICIAN Hospitalist; EMERGENCY PHYSICIAN Student in an Organized Health Care Education/Training Program; OTHER PHYSICIAN Internal Medicine
DX: K85.20 Alcohol induced acute pancreatitis without necrosis or infection (principal); F17.200 Nicotine dependence, unspecified, uncomplicated; F12.90 Cannabis use, unspecified, uncomplicated; J45.909 Unspecified asthma, uncomplicated; F10.10 Alcohol abuse, uncomplicated; F32.A Depression, unspecified; F41.9 Anxiety disorder, unspecified
CPT/HCPCS: 74177; 74183; 80053; 80061; 80306; 80307; 82077; 83605; 83690; 84703; 85025; 86140; 96361; 96374; 96375; 96376; 99284; 99406; A9575; Q9967